=== PATIENT | female | born 1950 | race Caucasian/White ===

== ENCOUNTER 2022-12-14 11:00 | Observation (INO) ==
--- NOTE | 2022-12-07 10:34 | Anesthesiology Consultation ---
Date of Service December 07, 2022 Assessment & Plan (1) Encounter for pre-operative examination: Plan - awaiting surgeon ordered medical clearance. - Per assessment specialist on 12/04/2022: No known infectious disease contacts, current infectious disease symptoms in past 10 days or COVID positive test result in the past 90 days. Chart Review Chart Review: Pending: Refer to Additional Notes / Consult section and Patient NOT seen in Pre Admission Testing History Surgery Operation Date: 12/14/22 13:35 Proposed Procedures p Left L1-L2 Laminectomy - Alonso Silver DO Height/Weight Height: 5 ft 5 in Weight: 61.689 kg Allergies Allergy/AdvReac Type Severity Reaction Status Date / Time No Known Allergies Allergy Unknown Verified 12/04/22 16:13 Medications Home Medications Medication Instructions Recorded Confirmed Last Taken amlodipine 10 mg tablet 10 mg PO QPM 12/04/22 12/04/22 Unknown atorvastatin 10 mg tablet 10 mg PO PM 12/04/22 12/04/22 Unknown magnesium 1 tab PO QAM 12/04/22 12/04/22 Unknown omeprazole magnesium 20 mg 20 mg PO QPM 12/04/22 12/04/22 Unknown tablet,delayed release (Prilosec OTC) potassium 99 mg tablet 99 mg PO QAM 12/04/22 12/04/22 Unknown pumpkin seed extract-soy germ 300 1 cap PO QPM 12/04/22 12/04/22 Unknown mg capsule (Azo Bladder Control) Past Medical History Medical History Back pain Cardiac murmur 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 GERD (gastroesophageal reflux disease) History of anxiety History of sleep apnea > 20 years. reports resolved with wt loss. HLD (hyperlipidemia) [place] (hard of hearing) Left HTN (hypertension) Meniere's disease Past Family History Family History Other No family history of adverse response to anesthesia Past Surgical History Surgical History History of arthroscopy of right knee History of bunionectomy BL. x 3 procedures. History of x 3 History of colonoscopy History of esophagogastroduodenoscopy (EGD) Social History Smoking Status: Current some day smoker Smoking cigarettes per day: 2 packs per week Do You Dip or Chew Tobacco: No Hx Alcohol Use: No Hx Substance Use: No substance use type: does not use Lab Results Anesthesia Preop Results Results Anesthesia Widget: WBC 11.08 K/ul (4.8-10.8) H 12/02/22 Hgb 13.0 g/dl (12.0-16.0) 12/02/22 Hct 38.1 % (37.0-47.0) 12/02/22 Plt 236 K/uL (130-400) 12/02/22 Na 140 mmol/L (136-145) 12/02/22 K 4.0 mmol/L (3.5-5.1) 12/02/22 Cl 104 mmol/L (98-107) 12/02/22 CO2 30 mmol/L (21-32) 12/02/22 BUN 20 mg/dl (6-23) 12/02/22 Creat 0.95 mg/dl (0.6-1.2) 12/02/22 Glucose Level 125 mg/dl (70-99(Fasting)) H 12/02/22 PT 10.2 Seconds (9.0-12.0) 12/02/22 PTT 21.9 Seconds (21.0-31.0) 12/02/22 INR 0.9 (0.9-1.1) 12/02/22 Urine Color [place] 12/02/22 Urine Appearance Clear (Clear) 12/02/22 Urine pH (4.5-7.5) 12/02/22 Urine Specific [place] 1.021 (1.000-1.030) 12/02/22 Urine Protein (Negative) 12/02/22 Urine Glucose (UA) (Negative) 12/02/22 Urine Ketones (Negative) 12/02/22 Urine Blood (Negative) 12/02/22 Urine Nitrite (Negative) 12/02/22 Urine Bilirubin (Negative) 12/02/22 Urine Urobilinogen (Negative) 12/02/22 Urine Leukocyte Esterase (Negative) 12/02/22 Blood Type B Positive 12/02/22 Antibody Screen NEGATIVE 12/02/22 Testing Electrocardiogram Date: 12/02/22 NSR, rate 78 bpm Left axis deviation Incomplete LBBB Septal infarct (cited on or before 12/05/2004) Chest X-Ray Date: 12/02/22 No acute chest disease
[~2022-12-14 11:00] MED LIST: ACETAMINOPHEN 500 MG TAB PO SCH; CeleBREX 200 MG CAP PO SCH; DEXAMETHASONE SOD INJ 4 MG/ML VIAL ONE; GABAPENTIN 300 MG CAP PO SCH; LACTATED RINGER'S 1,000 ML IV SCH; LIDOCAINE 2% 2 ML VIAL/AMP(20MG/ML) INFIL ONE; LR 60ML/HR IV SCH; MIDAZOLAM HCL 1 MG/ML 2ML VIAL ONE; ONDANSETRON INJ 2 MG/ML 2 ML VIAL ONE; PROPOFOL IV EMULSION 10 MG/ML 20 ML VIAL IV ONE; ROCURONIUM BROMIDE 10 MG/ML 5 ML VIAL IV ONE; SUGAMMADEX SODIUM 200 MG/2 ML VIAL IV ONE; ceFAZolin 2000MG 2,000 MG/15 ML SYR IV SCH; fentaNYL citrate PF 100 MCG/2 ML VIAL ONE
[2022-12-14] MEDS ORDERED: ePHEDrine sulfate 50 MG/ML AMP IV PRN (12:18)
[2022-12-14] MEDS ORDERED: HYDROmorphone INJ 2 MG/ML SYR/VIAL IV PRN (12:18)
[2022-12-14] MEDS ORDERED: ATROPINE SULFATE 0.1 MG/ML 10ML SYR IV PRN (12:18)
[2022-12-14] MEDS ORDERED: ONDANSETRON INJ 2 MG/ML 2 ML VIAL IV PRN ×2 (12:18→17:37)
--- NOTE | 2022-12-14 13:05 | History & Physical Bridge Note ---
Date of Service December 14, 2022 History & Physical Bridge Note I have examined the patient, reviewed the History & Physical and in the interval since the performance of the History & Physical I have noted the following changes of clinical significance: no changes noted
--- NOTE | 2022-12-14 13:06 | History & Physical Report ---
Date of Service December 14, 2022 Assessment & Plan (1) Lumbar disc herniation with radiculopathy: Plan: Left L1-L2 laminectomy History of Present Illness Chief Complaint: Back and leg pain Primary Care Provider: Donna Gaines DO This is a 72-year-old female who presents with acute discoloration severe leg pain. Failing extensive course of nonoperative care she is here for surgical invention. Allergies Allergy/AdvReac Type Severity Reaction Status Date / Time No Known Allergies Allergy Unknown Verified 12/14/22 11:35 Home Medications Medication Instructions Recorded Confirmed Type amlodipine 10 mg tablet 10 mg PO QPM 12/04/22 12/14/22 History atorvastatin 10 mg tablet 10 mg PO PM 12/04/22 12/14/22 History magnesium 1 tab PO QAM 12/04/22 12/04/22 History omeprazole magnesium 20 mg 20 mg PO QPM 12/04/22 12/04/22 History tablet,delayed release (Prilosec OTC) potassium 99 mg tablet 99 mg PO QAM 12/04/22 12/04/22 History pumpkin seed extract-soy germ 300 1 cap PO QPM 12/04/22 12/04/22 History mg capsule (Azo Bladder Control) Past Med/Surg History Medical History Back pain Cardiac murmur 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 GERD (gastroesophageal reflux disease) History of anxiety History of sleep apnea > 20 years. reports resolved with wt loss. HLD (hyperlipidemia) [place] (hard of hearing) Left HTN (hypertension) Meniere's disease Surgical History History of arthroscopy of right knee History of bunionectomy BL. x 3 procedures. History of x 3 History of colonoscopy History of esophagogastroduodenoscopy (EGD) Family History Other No family history of adverse response to anesthesia Social History Smoking Status: Current some day smoker Tobacco Type: Cigarettes Cigarettes Per Day: 2 packs per week; Second Hand Exposure: No; Do You Dip or Chew Tobacco: No; Tobacco Cessation Education Requested by Patient: No Hx Alcohol Use: No Hx Substance Use: No Preferred Language: Serbian Communication Ability: Effective Senior Technical Program Manager Required: No Beliefs That Will Affect Care: None Current Living Situation: Alone Feels Safe at Home: Yes Safety Concerns: Feels Safe At This Time Assistive Devices: Glasses Physical Exam Physical Exam: Patient is alert and oriented Heart regular rhythm Lungs clear Results & Data Results & Data Vital Signs (Past 12 Hours) Vital Signs Temp Pulse Resp BP Pulse Ox O2 Del Method 12/14/22 12:01 36.5 C 92 H 20 111/79 95 Room Air
[2022-12-14] MEDS ORDERED: BUPIVACAINE/EPINEPHRINE 0.25% 1:200,000 30 ML VIAL ONE (13:21)
[2022-12-14] MEDS ORDERED: ceFAZolin 330 MG/ML 1 GM VIAL ONE (13:21)
[2022-12-14] MEDS ORDERED: FLOSEAL HEMOSTATIC MATRIX 10ML TOP ONE (13:56)
[2022-12-14] MEDS ORDERED: ePHEDrine sulfate 50 MG/ML AMP ONE (13:58)
--- NOTE | 2022-12-14 14:18 | Operative Report ---
Post Operative Report Pre & Post Diagnosis Operation Date: 12/14/22 12:45 Pre-Op Diagnosis: Lumbar disc herniation with radiculopathy Post-Op Diagnosis: Lumbar disc herniation with radiculopathy I identified the patient and participated in the time-out.: Yes Procedure Operation Date: 12/14/22 12:45 Actual Procedures Lumbar laminectomy L1-L2 on the left with excision of herniated free fragment Surgeon Alonso Silver DO Big Data Engineer Jaimee Villavicencio Estimated Blood Loss 10 Findings Consistent with Post-Op Diagnosis Specimens None Indications This is a 72-year-old female well-known to me that presents with significant radiculopathy after failing since course of nonoperative care is here for surgical intervention. Description of Procedure Patient met with identified informed consent obtained. Patient was then taken to the operative suite underwent ablation placed in a prone position the Ferny table top of the Antoni frame. All bony promises well-padded eyes inspected to ensure no external precipice spinal. This point the lumbar spine was prepped and draped normal sterile fashion. The assistance of fluoroscopy to notify the L1-L2 disc base and small incision was created midline overlying this region. Incision reported from down to and exposing the interlaminar space at L1-L2 on the left. Self-retaining retractors placed. Then performed a laminotomy exposing the traversing S1 nerve root. I was able to mobilize it medially and noted several fragments of free disc material that extended proximally into the foramen. They removed in their entirety. The incision was then copiously irrigated explored to ensure all fragments were addressed. Was then closed with 1 Vicryl to fascia 2-0 Vicryl subcutaneously and 4-0 Monocryl l for final skin closure. Steri-Strips sterile dressing placed. Patient waken taken to PACU in stable condition. Please note Jaimee Villavicencio was present that the entire procedure involved the patient position complex course of the surgery and final skin closure. I attest to the content of the Intraoperative Record and any orders documented therein. Any exceptions are noted below.
--- NOTE | 2022-12-14 14:46 | Anesthesiology Progress Note ---
Date of Service December 14, 2022 Anesthesia Post Procedure Vital Signs Vital Signs: Temp Pulse Pulse Resp BP Pulse Ox O2 Del Method 12/14/22 14:40 85 12 118/71 100 Oxymask 12/14/22 14:30 89 18 120/69 98 Oxymask 12/14/22 14:23 36.3 C L 87 12 124/65 97 Oxymask 12/14/22 12:01 36.5 C 92 H 20 111/79 95 Room Air O2 Flow Rate 12/14/22 14:40 4 12/14/22 14:30 6 12/14/22 14:23 6 12/14/22 12:01 Pain Intensity Lower Back: Pain Intensity: 3 Transfer of Care Handoff Completed per policy Notes Mental Status: alert / awake / arousable and participated in evaluation Patient Amnestic to Procedure: Yes Nausea / Vomiting: adequately controlled Pain: adequately controlled Airway Patency, RR, SpO2: stable & adequate BP & HR: stable & adequate Hydration State: stable & adequate Anesthetic Complications: no major complications apparent and Pt Satisfied with anesthetic care
[2022-12-14] MEDS: fentaNYL citrate PF 100 MCG/2 ML VIAL IV PRN ×4 (14:53→15:15)
--- NOTE | 2022-12-14 15:35 | Fluoroscopy Report ---
FL spine 1V any level CLINICAL HISTORY: L1-L2 laminectomy COMPARISON STUDY: None. FLUOROSCOPY TIME: 3 seconds FLUOROSCOPY IMAGES: 2 Ka,r: 2.7 mGy FINDINGS: Surgical instruments posterior to the upper lumbar region likely the L1-L2 level for the la minectomy. Exact levels are difficult to assess on this spot image. Prior posterior decompression and fusion within the lower lumbar spine with pedicle screws and rods. IMPRESSION: Fluoroscopic assistance as above. ACT 112: Negative or not required by law. Electronically signed by: Patel Goode M.D. 12/14/2022 3:34 PM
[2022-12-14] MEDS ORDERED: METOCLOPRAMIDE HCL INJ 5 MG/ML 2 ML VIAL IV PRN (17:37)
[2022-12-14] MEDS ORDERED: HYDROmorphone INJ 1 MG/ML SYRINGE IV PRN (17:37)
[2022-12-14] MEDS ORDERED: hydrOXYzine HCl 25 MG TAB PO PRN (17:37)
[2022-12-14] MEDS ORDERED: oxyCODONE HCL IR 5 MG TAB (IMMEDIATE RELEASE) PO PRN (17:37)
[2022-12-14] MEDS ORDERED: FAMOTIDINE 20 MG TAB PO PRN (17:37)
[2022-12-14] MEDS ORDERED: SOD PHOSPHATE/SOD BIPHOSPHATE ENEMA 132 ML BTL PR PRN (17:37)
[2022-12-14] MEDS ORDERED: ALUMINUM/MAGNESIUM SUSP 30 ML UDC PO PRN (17:37)
[2022-12-14] MEDS ORDERED: diphenhydrAMINE Capsule 25 MG CAP PO PRN (17:37)
[2022-12-14] MEDS ORDERED: MAGNESIUM HYDROXIDE SUSP 30 ML UDC PO PRN (17:37)
[2022-12-14] MEDS ORDERED: LORazepam 0.5 MG TAB PO PRN (17:37)
[2022-12-14] MEDS ORDERED: HYDROmorphone INJ 0.5 MG/0.5 ML SYR IV PRN (17:37)
[2022-12-14] MEDS ORDERED: ACETAMINOPHEN 500 MG TAB PO PRN (17:37)
[2022-12-14] MEDS ORDERED: LORazepam 2 MG/1 ML VIAL IV PRN (17:37)
[2022-12-14] MEDS ORDERED: DO NOT ADMINISTER FLU VACCINE PRN (17:37)
[2022-12-14] MEDS ORDERED: bisacodyL 10 MG SUPP PR PRN (17:37)
[2022-12-14] MEDS ORDERED: NALOXONE HCL 0.4 MG/1 ML VIAL/CARP IV PRN (17:37)
[2022-12-14] MEDS ORDERED: ONDANSETRON 4 MG OD TAB PO PRN (17:37)
[2022-12-14] MEDS ORDERED: PROMETHAZINE HCL 12.5 MG in SODIUM CHLORIDE 0.9% 50 ML IV PRN (17:37)
[2022-12-14] MEDS ORDERED: traMADol HCL 50 MG TABLET PO PRN (17:37)
[2022-12-14] MEDS ORDERED: ACETAMINOPHEN 1,000 MG/100 ML VIAL IV PRN (17:37)
[2022-12-14] MEDS ORDERED: DO NOT ADMINISTER PNEUMOCOCCAL VACCINE PRN (17:37)
[2022-12-14] MEDS: LACTATED RINGER'S 1,000 ML IV SCH (18:40)
[2022-12-14] MEDS ORDERED: DOCUSATE SODIUM/SENNA 50/8.6MG TAB PO SCH (21:00)
[2022-12-14] MEDS ORDERED: PANTOprazole 40 MG TAB PO SCH (21:00)
[2022-12-14] MEDS ORDERED: amLODIPine BESYLATE 5 MG TAB PO SCH (21:00)
[2022-12-14] MEDS ORDERED: NON-FORMULARY MEDICATION (Pumpkin Seed Extract-Soy Germ [Azo Bladder Control] 300 mg Capsu PO SCH (21:00)
[2022-12-14] MEDS ORDERED: ATORVASTATIN 10 MG TAB PO SCH (21:00)
[2022-12-14] MEDS: ceFAZolin 1000MG 1,000 MG/7.5 ML SYR IV SCH (21:25)
[2022-12-15] MEDS: LACTATED RINGER'S 1,000 ML IV SCH (04:12)
[2022-12-15] MEDS: ceFAZolin 1000MG 1,000 MG/7.5 ML SYR IV SCH (05:29)
[2022-12-15] MEDS ORDERED: POLYETHYLENE (MIRALAX) 17 GM PACK PO SCH (06:00)
[2022-12-15] MEDS ORDERED: NON-FORMULARY MEDICATION (Potassium 99 mg Tablet) PO SCH (09:00)
[2022-12-15] MEDS ORDERED: dexAMETHasone 4 MG in SYRINGE 0 ML IV SCH (09:00)
[2022-12-15] MEDS ORDERED: NON-FORMULARY MEDICATION (Magnesium Tablet) PO SCH (09:00)
--- NOTE | 2022-12-15 09:48 | Discharge Summary ---
Date of Service December 15, 2022 Admission HPI Per Admitting Provider This is a 72-year-old female who presents with acute discoloration severe leg pain. Failing extensive course of nonoperative care she is here for surgical invention. Principal Diagnosis Lumbar discrimination with radiculopathy Discharge Data Allergies Allergy/AdvReac Type Severity Reaction Status Date / Time No Known Allergies Allergy Unknown Verified 12/14/22 11:35 Procedures Performed Operation Date: 12/14/22 12:45 Actual Procedures p Left L1-L2 Laminectomy(Left) - Alonso Silver DO Ordered Studies 12/14/22 12:45 [place] spine 1V any level Routine Hospital Course (1) Lumbar disc herniation with radiculopathy: Patient 1 lumbar laminectomy trial as well as taken to orthopedic for postoperative. Postoperatively when she was up and ambulating pain well controlled. Leg symptoms markedly improved. Simply discharged home. Discharge orders instructions from the chart for further review. Total Time Total Time Spent Total Time Spent (In Minutes): 20 minutes Discharge Plan Discharge Items Patient Disposition: Home - Self-Care Reason For Visit: POSTOP Discharge Diagnosis: Lumbar disc herniation with radiculopathy Activity: As commented below Non-emergency contact: Primary Care Provider Call non-emergency contact if: you have any medication questions Follow-up/Referrals: Donna Gaines DO [Primary Care Provider] - Diet: Regular Addtl Attending Provider Instructions: ACTIVITY RECOMMENDATIONS: SELF CARE INSTRUCTIONS AFTER A LAMINECTOMY 1. No prolonged sitting (less than 30 minutes for the first 3 weeks after surgery). 2. No bending, lifting more than 5 pounds, or twisting (roll like a log when turning in bed). 3. You may shower 3 days after surgery if no drainage from wound. Thoroughly dry wound. Do not soak in the tub. 4. Please walk as much as you can for exercise. Gradually increase the distance that you walk as your endurance increases. 5. You may drive in 7-10 days if you are comfortable and no longer requiring pain medications. SPECIAL CARE INSTRUCTIONS: VERY IMPORTANT TO READ AND REVIEW A. Your surgical incision has been closed with a cosmetic suture under the skin that will dissolve in about 6 weeks. In 14 days, you can use a pair of clean scissors and cut the suture that is left outside of the skin at the ends of your incision. B. Complications are uncommon, but please contact us if you have any signs or symptoms of: 1. wound infection (fever higher than 102.5 degrees F, redness, separation of wound, drainage, or increasing pain from the incision) 2. blood clots in legs (pain, swelling, redness and warmth in legs) 3. urinary tract infection (fever higher than 102.5 degrees, burning upon urination or increased frequency of urination) 4. nerve problems (inability to walk on your toes or heels, numbness, loss of bowel or bladder control) 5. any other symptoms that concern you. C. Please call the office at if you have any concerns or questions about your operation or recovery. MANAGING PAIN AFTER SPINAL SURGERY 1. Narcotic medication is intended for short-term use and will be provided for surgical pain. Surgical pain usually lasts for a period of 4-6 weeks. Narcotic medication includes Percocet, Vicodin, Darvocet, Tylenol #3 or Lortab. 2. Longer-term pain is more appropriately treated with non-narcotic medication such as Tylenol ES. 3. Muscle spasm is not appropriately treated with narcotics. Muscle relaxers such as Soma, Flexeril or Skelaxin can be used along with Tylenol ES. 4. Remember that we all live with some "aches and pains". This is not unusual or uncommon after an injury or as we get older. 5. We will provide appropriate medication within the normal guidelines of their prescribed use. We will also be very cautious and aware of potential abuse and extended duration of patients' medication needs. 6. Please allow 2-3 days to process refills. Prescriptions will not be mailed but must be picked up at the office. FOLLOW UP VISIT: Keep your scheduled follow-up appointment. Any questions, please call the office at . Pending Studies at Discharge: No Stand-Alone Forms: My [employer], Smoking Cessation Medications and DC Order Prescriptions: New tramadol 50 mg tablet 50 mg PO Q6H PRN (Reason: pain, moderate) Qty: 20 0RF oxycodone 5 mg tablet 5 mg PO Q6H PRN (Reason: pain) Qty: 2 0RF Continued atorvastatin 10 mg Tablet 10 mg PO PM potassium 99 mg Tablet 99 mg PO QAM amlodipine 10 mg Tablet 10 mg PO QPM magnesium Tablet 1 tab PO QAM Azo Bladder Control 300 mg Capsule 1 cap PO QPM omeprazole magnesium [Prilosec OTC] 20 mg Tablet,Delayed Release (Dr/Ec) 20 mg PO QPM Discharge Orders: Discharge Order (Routine); Ordered 12/15/22 Ordered By: Alonso Silver Admission Data Admit Date/Time: 12/14/22 14:20 Attending Provider: Alonso Silver Admit Provider: Alonso Silver Primary Care Provider: Donna Gaines
== END 2022-12-15 11:23 | disposition home or self-care (01) ==
LOC: PACUINP 11:00 → ASU 11:00 → 3W 18:30